=== PATIENT | female | born 1955 | race Two or more races ===

== ENCOUNTER 2017-12-02 17:05 | Inpatient (IN) | payer OTHER ==
[~2017-12-02] VITALS: Ht 147.3 cm; Wt 85.8 kg
--- NOTE | 2017-12-02 19:10 | NUR ---
IN FROM ER VIA [facility], ADMITTED TO ARU 62 YEAR OLD F WITH DX OF STATUS POST LEFT KNEE REPLACEMENT. AAOX3, DENIES ANY SOB OR CHEST PAIN. ON O2 1L VIA NC, TOLERATED WELL. FAMILY AT BEDSIDE. BELONGING LIST CHECKED. ROUTINE ADMISSION DONE. PLAN OF CARE INITIATED. INSTRUCTIONS GIVEN TO PT NOT TO AMBULATE UNTIL PHYSICAL THERAPIST'S VISIT. PT VERBALIZED UNDERSTANDING. BED ON LOW POSITION AND LOCKED. WITH 2 SIDE RAILS UP, CALL LIGHT WITHIN REACH. Addendum: 12/02/17 at 2231 by GEORGE OCHOA RN TIME OF ARRIVAL TO UNIT: 0H 12/02/17
[2017-12-02 20:00] VITALS: BP 161/86
[2017-12-02] MEDS ORDERED: MAGNESIUM HYDROXIDE 30 ML LIQUID UDC PO PRN (21:00)
[2017-12-02] MEDS ORDERED: Z GUARD REMEDY PASTE 57 GM TUBE TOP PRN (21:00)
[2017-12-02] MEDS ORDERED: ONDANSETRON 4 MG/2 ML VIAL IV PRN (21:00)
[2017-12-02] MEDS ORDERED: ZOLPIDEM 5 MG TABLET PO PRN (21:00)
[2017-12-02] MEDS: DOCUSATE SODIUM 100 MG CAPSULE PO SCH (23:00)
[2017-12-03] MEDS: PANTOPRAZOLE SODIUM 40 MG TABLET.DR PO SCH (06:22)
[2017-12-03] MEDS: ACETAMINOPHEN 325 MG TABLET PO PRN (06:28)
--- NOTE | 2017-12-03 06:28 | NUR ---
PT SLEEPING COMFORTABLY ON BED. NO COMPLAINTS OF DISTRESS THROUGHOUT THE SHIFT. ENCOURAGED TO CONTINUE USING INCENTIVE SPIROMETRY AND REMINDED NOT TO AMBULATE UNTIL PHYSICAL THERAPY EVALUATION. PT VERBALIZED UNDERSTANDING. DAUGHTER AT BEDSIDE. ALL NEEDS ATTENDED AND MET. SAFE ENVIRONMENT MAINTAINED AT ALL TIMES, CALL HEAD WITHIN REACH.
--- NOTE | 2017-12-03 07:30 | NUR ---
Rec'd pt in bed awake, no acute distress noted. Dtr at bedside. Pt admitted during noc shift. Pt A&Ox4, Kyrgyz speaking with some Icelandic. Pt S/P L knee arthroplasty at [facility]. Pt on 1L O2 via n/c, no SOB noted. All safety precautions in place at this time. Will continue to monitor.
[2017-12-03 08:01] LABS: BASOPHILS % (AUTO) 0.5 % (0.0-2.0); EOSINOPHILS # (AUTO) 0.1 K/uL (0.0-0.7); EOSINOPHILS % (AUTO) 0.9 % (0.0-7.0); HEMATOCRIT 28.1 % (31.2-41.9); HEMOGLOBIN 9.8 g/dL (10.9-14.3); LYMPHOCYTES # (AUTO) 1.8 K/uL (20.0-40.0); LYMPHOCYTES % (AUTO) 19.1 % (20.5-51.5); MEAN CORPUSCULAR HEMOGLOBIN 31.1 uug (24.7-32.8); MEAN CORPUSCULAR HGB CONC 35 g/dL (32.3-35.6); MEAN CORPUSCULAR VOLUME 89.6 fL (75.5-95.3); MONOCYTES # (AUTO) 0.9 K/uL (2.0-10.0); MONOCYTES % (AUTO) 9.6 % (0.0-11.0); NEUTROPHILS # (AUTO) 6.5 K/uL (1.8-8.9); NEUTROPHILS % (AUTO) 69.9 % (38.5-71.5); PLATELET COUNT (AUTO) 162 K/uL (179-408); RED BLOOD CELL COUNT(AUTO) 3.14 MIL/uL (3.63-4.92); WHITE BLOOD COUNT (AUTO) 9.4 K/uL (3.8-11.8)
[2017-12-03 08:11] LABS: CREATININE 0.9 mg/dL (0.6-1.3); PHOSPHOROUS 1.9 mg/dL (2.5-4.9); POTASSIUM 3.9 mmol/L (3.5-5.1)
[2017-12-03] MEDS: HYDROCODONE/APAP 5-325MG TABLET PO PRN ×3 (09:04→22:20)
[2017-12-03] MEDS: ONDANSETRON HCL 4 MG TABLET PO PRN ×2 (10:28→17:54)
[2017-12-03 16:15] VITALS: BP 149/74
[2017-12-03] MEDS ORDERED: NEUTRA PHOS PACKET PO ONE (16:30)
--- NOTE | 2017-12-03 16:48 | NUR ---
Pt complained of coughing up blood. Per pt, she was performing the incentive spirometer exercised and it made her cough up sputum with bright red blood. Noted scant sputum with bright red blood to pt's towel at bedside. Pt without s/s of acute resp distress noted. Vs: 99.1 oral, 101 18 149/72 0/10. Lung sounds clear. Denies dyspnea. Per pt she has had bloody sputum before after being extubated with recent surgery but this is most blood so far. Paged Jeff Zaldivar NP c/o Rodrigo from the answering service. Awaiting call back. Will continue to monitor pt.
--- NOTE | 2017-12-03 17:30 | NUR ---
GILDA Aguilar in-house. Relayed pt's condition and episode of coughing up blood with sputum during use of incentive spirometer. Per Jeff, continue to monitor pt for further episodes. Per GILDA Aguilar pt could have sustained abrasions in her airway while being intubated that have scabbed over. The scabs could have been dislodged during a forceful cough which could have caused the bloody sputum. No new orders at this time. Notified pt and her daughter/family at bedside. No further episode at this time. Will continue to monitor pt.
[2017-12-03] MEDS ORDERED: SENN-18 PO (19:05)
[2017-12-03] MEDS ORDERED: DIPH25CA83 PO (19:05)
[2017-12-03] MEDS ORDERED: MAG-55 PO (19:05)
[2017-12-03] MEDS ORDERED: SIMV40TA5 PO (19:05)
[2017-12-03] MEDS ORDERED: FAMO-132 PO (19:05)
[2017-12-03] MEDS ORDERED: AMLO5TAB7 PO (19:05)
[2017-12-03] MEDS ORDERED: ZOLP5TAB2 PO (19:05)
[2017-12-03] MEDS ORDERED: ATEN50TA PO (19:05)
[2017-12-03] MEDS ORDERED: RIVA20TA PO (19:05)
[2017-12-03] MEDS ORDERED: BENZ1LOZ58 MM (19:05)
[2017-12-03] MEDS ORDERED: OXYC-133 PO (19:05)
[2017-12-03] MEDS ORDERED: SENNOSIDES 1 TABLET PO PRN (20:45)
[2017-12-03] MEDS ORDERED: Medication Not On Formulary EA (Diphenhydramine Hcl (Benadryl) 25 MG) PO SCH (20:45)
[2017-12-03 21:00] VITALS: BP 123/70
[2017-12-03] MEDS: SIMVASTATIN 40 MG TABLET PO SCH ×2 (21:41→22:20)
[2017-12-03] MEDS ORDERED: diphenhydrAMINE 25 MG CAP PO PRN (22:00)
[2017-12-03] MEDS: DOCUSATE SODIUM 100 MG CAPSULE PO SCH (22:20)
[2017-12-04] MEDS: HYDROCODONE/APAP 5-325MG TABLET PO PRN ×3 (05:15→16:36)
[2017-12-04 05:45] VITALS: BP 141/72
[2017-12-04] MEDS: PANTOPRAZOLE SODIUM 40 MG TABLET.DR PO SCH (06:42)
[2017-12-04 08:00] VITALS: BP 151/75
[2017-12-04] MEDS ORDERED: Medication Not On Formulary EA (Rivaroxaban (Xarelto) 10 MG) PO SCH (09:00)
[2017-12-04] MEDS: ATENOLOL 50 MG TABLET PO SCH (09:07)
[2017-12-04] MEDS: AMLODIPINE 5 MG TABLET PO SCH (09:07)
--- NOTE | 2017-12-04 10:54 | NUR ---
No coughing this am. Patient in therapy at this time.
[2017-12-04] MEDS: OXYCODONE/APAP 5-325 MG TABLET PO PRN ×2 (11:31→20:30)
--- NOTE | 2017-12-04 11:54 | NUR ---
Patient using constant passive range of motion in bed at this time.
[2017-12-04 16:00] VITALS: BP 114/49
[2017-12-04] MEDS: RIVAROXABAN 10 MG TABLET PO SCH (18:16)
--- NOTE | 2017-12-04 19:23 | NUR ---
Handoff to night nurse PAULA Wakefield. Maico Yanez RN
[2017-12-04 20:00] VITALS: BP 119/58
[2017-12-04] MEDS: DOCUSATE SODIUM 100 MG CAPSULE PO SCH (20:30)
[2017-12-04] MEDS: SIMVASTATIN 40 MG TABLET PO SCH (20:30)
--- NOTE | 2017-12-04 21:49 | NUR ---
Received pt in bed. Family at bedside. No acute distress noted. C/o pain on the left knee, pt requested for pain med. Percocet and other scheduled meds given as ordered. Safety measures maintained. Encouraged pt to use call light. Call light and personal belongings within reach. Will continue to monitor.
[2017-12-05] MEDS: HYDROCODONE/APAP 5-325MG TABLET PO PRN ×3 (05:20→21:17)
[2017-12-05] MEDS: PANTOPRAZOLE SODIUM 40 MG TABLET.DR PO SCH (06:03)
[2017-12-05 06:14] VITALS: BP 139/66
--- NOTE | 2017-12-05 07:30 | NUR ---
Received pt in bed with eyes open. No acute distress noted. Safety measures maintained. Pt. mostly speaks Bengali with little Uzbek. Encouraged pt to use call light. Noted LT. knee covered with vlad wrap. Call light and all frequently used items within reach. Will continue to monitor.
[2017-12-05] MEDS: AMLODIPINE 5 MG TABLET PO SCH (10:12)
[2017-12-05] MEDS: ATENOLOL 50 MG TABLET PO SCH (10:12)
[2017-12-05] MEDS: OXYCODONE/APAP 5-325 MG TABLET PO PRN ×2 (10:13→16:27)
[2017-12-05] MEDS ORDERED: BENZOCAINE/MENTH/CETYLPYRD LOZENGE MM PRN (12:30)
--- NOTE | 2017-12-05 15:07 | NUR ---
INTERDISCIPLINARY TEAM CONFERENCE
[2017-12-05] MEDS: RIVAROXABAN 10 MG TABLET PO SCH (17:27)
--- NOTE | 2017-12-05 18:53 | NUR ---
No significant change throughout shift. PRN pain medication given as ordered and tolerated well. Will endorse to oncoming shift accordingly.
[2017-12-05 19:30] VITALS: BP 122/64
--- NOTE | 2017-12-05 19:30 | NUR ---
Awake during initial rounds. No complaint presented at this time. Very pleasant and appreciative. Safety measure and fall precaution maintained. Continue current plan of care.
[2017-12-05] MEDS: DOCUSATE SODIUM 100 MG CAPSULE PO SCH (21:16)
[2017-12-05] MEDS: SIMVASTATIN 40 MG TABLET PO SCH (21:17)
[2017-12-06] MEDS: OXYCODONE/APAP 5-325 MG TABLET PO PRN ×4 (01:59→18:55)
[2017-12-06] MEDS: PANTOPRAZOLE SODIUM 40 MG TABLET.DR PO SCH (06:34)
--- NOTE | 2017-12-06 07:15 | NUR ---
Shift End Report; Slept in between care. Medicated twice for left knee pain with relief. No further complaint presented. Left knee incision dressing dry and intact. No fall/injury reported. All needs attended and met. Continue rehab plan of care.
[2017-12-06] MEDS: ATENOLOL 50 MG TABLET PO SCH (08:22)
[2017-12-06] MEDS: AMLODIPINE 5 MG TABLET PO SCH (08:22)
[2017-12-06 15:42] VITALS: BP 144/67
[2017-12-06] MEDS: RIVAROXABAN 10 MG TABLET PO SCH (18:48)
[2017-12-06 20:05] VITALS: BP 115/60
--- NOTE | 2017-12-06 20:30 | NUR ---
Seen and evaluated by Dr. Sullivan. Pleasant and cooperative. In no apparent acute distress.
[2017-12-06] MEDS: DOCUSATE SODIUM 100 MG CAPSULE PO SCH (21:59)
[2017-12-06] MEDS: HYDROCODONE/APAP 5-325MG TABLET PO PRN (21:59)
[2017-12-06] MEDS: SIMVASTATIN 40 MG TABLET PO SCH (22:00)
--- NOTE | 2017-12-06 23:20 | NUR ---
Received report from outgoing nurse. Pt sleeping at this time. Continue care as planned.
[2017-12-07 04:46] VITALS: BP 134/61
[2017-12-07] MEDS: HYDROCODONE/APAP 5-325MG TABLET PO PRN ×3 (05:05→21:03)
[2017-12-07] MEDS: PANTOPRAZOLE SODIUM 40 MG TABLET.DR PO SCH (05:58)
--- NOTE | 2017-12-07 07:07 | NUR ---
Shift End Report: Slept well. Medicated once for pain with relief. No fall/injury reported. All needs attended and met. Continue care as planned,.
[2017-12-07 08:00] VITALS: BP 136/68
[2017-12-07] MEDS: ATENOLOL 50 MG TABLET PO SCH (08:57)
[2017-12-07] MEDS: AMLODIPINE 5 MG TABLET PO SCH (08:58)
[2017-12-07] MEDS: OXYCODONE/APAP 5-325 MG TABLET PO PRN ×2 (08:59→16:33)
--- NOTE | 2017-12-07 09:57 | NUR ---
Report received from previous shift. Received pt. in bed comfortable with c/o 6/10 pain to LT. knee 2/2 s/p lt. knee replacement, will medicate as ordered. [place] PRN given by previous shift. Pt. A/OX3 speaks mostly Cape Verdean with little Cambodian. No new skin condition noted. No c/o of SOB or increase work of breathing, on RA @ 97% sat. No abdominal distention noted. Bed in locked and lowest position. Call light and frequently used items within reach. Emphasize with pt. used of call light, pt. verbalized clear understanding. Will continue to monitor.
[2017-12-07 16:38] VITALS: BP 131/47
[2017-12-07] MEDS: RIVAROXABAN 10 MG TABLET PO SCH (17:23)
--- NOTE | 2017-12-07 19:20 | NUR ---
Awake during initial rounds. Denies pain/discomforts at this time. Left knee dressing dry and intact. Continue care as planned.
[2017-12-07 20:30] VITALS: BP 111/64
[2017-12-07] MEDS: DOCUSATE SODIUM 100 MG CAPSULE PO SCH (21:04)
[2017-12-07] MEDS: SIMVASTATIN 40 MG TABLET PO SCH (21:04)
[2017-12-07] MEDS: ONDANSETRON HCL 4 MG TABLET PO PRN (21:08)
[2017-12-08] MEDS: PANTOPRAZOLE SODIUM 40 MG TABLET.DR PO SCH (05:46)
--- NOTE | 2017-12-08 06:37 | NUR ---
Shift End Report: Slept good. No complaint presented all night. Vs stable. No fall/injury. All needs attended and met.Continue care as planned.
[2017-12-08 07:05] LABS: BASOPHILS # (AUTO) 0.1 K/uL (0.0-8.0); BASOPHILS % (AUTO) 0.8 % (0.0-2.0); EOSINOPHILS # (AUTO) 0.3 K/uL (0.0-0.7); EOSINOPHILS % (AUTO) 3.6 % (0.0-7.0); HEMATOCRIT 26.4 % (31.2-41.9); HEMOGLOBIN 9.1 g/dL (10.9-14.3); LYMPHOCYTES % (AUTO) 26.3 % (20.5-51.5); MEAN CORPUSCULAR HEMOGLOBIN 31.4 uug (24.7-32.8); MEAN CORPUSCULAR HGB CONC 35 g/dL (32.3-35.6); MEAN CORPUSCULAR VOLUME 90.5 fL (75.5-95.3); MONOCYTES # (AUTO) 0.7 K/uL (2.0-10.0); MONOCYTES % (AUTO) 9.1 % (0.0-11.0); NEUTROPHILS # (AUTO) 4.6 K/uL (1.8-8.9); NEUTROPHILS % (AUTO) 60.2 % (38.5-71.5); PLATELET COUNT (AUTO) 306 K/uL (179-408); RED BLOOD CELL COUNT(AUTO) 2.92 MIL/uL (3.63-4.92); WHITE BLOOD COUNT (AUTO) 7.6 K/uL (3.8-11.8)
[2017-12-08 07:11] VITALS: BP 122/73
[2017-12-08 07:27] LABS: THYROID STIMULATING HORMONE 0.983 mIU/mL (0.358-3.740)
[2017-12-08 07:44] LABS: BILIRUBIN,TOTAL 0.9 mg/dL (0.2-1.0); CREATININE 0.7 mg/dL (0.6-1.3); MAGNESIUM 2.2 mg/dL (1.8-2.4); PHOSPHOROUS 3.9 mg/dL (2.5-4.9); TOTAL PROTEIN, SERUM 6.8 g/dL (6.4-8.2)
[2017-12-08 08:00] VITALS: BP 112/84
[2017-12-08] MEDS: ATENOLOL 50 MG TABLET PO SCH (08:44)
[2017-12-08] MEDS: AMLODIPINE 5 MG TABLET PO SCH (08:44)
[2017-12-08] MEDS: HYDROCODONE/APAP 5-325MG TABLET PO PRN ×3 (08:45→18:33)
--- NOTE | 2017-12-08 09:00 | NUR ---
Received patient, awake, alert x4. Not in any form of distress. With pain over left knee rated as 6/10. PRN pain medications given. For physial therapy, patient ready and up in chair.
[2017-12-08 16:07] VITALS: BP 118/63
[2017-12-08] MEDS: RIVAROXABAN 10 MG TABLET PO SCH (18:03)
[2017-12-08] MEDS: ONDANSETRON HCL 4 MG TABLET PO PRN (18:33)
[2017-12-08] MEDS: DOCUSATE SODIUM 100 MG CAPSULE PO SCH (21:17)
[2017-12-08] MEDS: SIMVASTATIN 40 MG TABLET PO SCH (21:18)
[2017-12-08] MEDS: OXYCODONE/APAP 5-325 MG TABLET PO PRN (21:18)
[2017-12-08 21:56] VITALS: BP 120/67
--- NOTE | 2017-12-08 22:08 | NUR ---
Received pt resting in bed and watching TV. AAO x4. Kiswahili speaking, able to make needs known. No acute distress noted. C/o pain on the right knee 09/11, pt requested for pain med. No s/s of infection on surgical site, dressing intact. Gave PRN Percocet. Safety measures maintained. Call light and personal belongings within reach. Will continue to monitor.
[2017-12-09] MEDS: PANTOPRAZOLE SODIUM 40 MG TABLET.DR PO SCH (06:02)
[2017-12-09 06:45] VITALS: BP 144/77
[2017-12-09] MEDS: HYDROCODONE/APAP 5-325MG TABLET PO PRN ×2 (08:19→13:29)
[2017-12-09] MEDS: ATENOLOL 50 MG TABLET PO SCH (08:21)
[2017-12-09] MEDS: AMLODIPINE 5 MG TABLET PO SCH (08:22)
--- NOTE | 2017-12-09 15:14 | NUR ---
INTERDISCIPLINARY TEAM CONFERENCE
[2017-12-09] MEDS: OXYCODONE/APAP 5-325 MG TABLET PO PRN (17:48)
[2017-12-09] MEDS: RIVAROXABAN 10 MG TABLET PO SCH (17:50)
--- NOTE | 2017-12-09 19:21 | NUR ---
SBAR report received this morning. Pt assessed no acute distress throughout this shift and reports pain managed with PRN medication. Pt room changed to 101. Pt compliant with all routine medication administration and actively participates with therapies as offered. Pt assisted to restroom for BMx1. Bed in locked and lowest position, with side rails up x2. All comfort and safety needs met. Call light placed within reach. Will continue to monitor and endorse to on coming night shift supervisor.
[2017-12-09] MEDS: DOCUSATE SODIUM 100 MG CAPSULE PO SCH (20:11)
[2017-12-09] MEDS: SIMVASTATIN 40 MG TABLET PO SCH (20:11)
[2017-12-09 20:35] VITALS: BP 122/64
--- NOTE | 2017-12-09 20:47 | NUR ---
Received pt sleeping comfortably in bed, aroused easily when called by name. AAO x4. South Korean speaking, able to make needs known. No acute distress noted. No c/o pain or discomfort at this time. VSS. Meds given as ordered, pt compliant with plan of care. Safety measures maintained. Call light and personal belongings within reach. Will continue to monitor.
[2017-12-10] MEDS: PANTOPRAZOLE SODIUM 40 MG TABLET.DR PO SCH (06:13)
[2017-12-10 07:01] VITALS: BP 144/78
--- NOTE | 2017-12-10 07:02 | NUR ---
Patient noted resting in bed watching tv, complaints of pain 6/10 in left knee, will administer PRN pain medications, no signs of distress noted, call light in reach, bed locked and in lowest position, x 2 bed rails, all needs met at this time
[2017-12-10] MEDS: OXYCODONE/APAP 5-325 MG TABLET PO PRN ×2 (08:38→15:52)
[2017-12-10] MEDS: ATENOLOL 50 MG TABLET PO SCH (08:39)
[2017-12-10] MEDS: AMLODIPINE 5 MG TABLET PO SCH (08:39)
--- NOTE | 2017-12-10 16:40 | NUR ---
Patient showered this shift, PRN percocet given twice this shift
[2017-12-10] MEDS: RIVAROXABAN 10 MG TABLET PO SCH (17:24)
--- NOTE | 2017-12-10 19:51 | NUR ---
Pt awake and sitting Semi Fowlers position in bed . Pt is c/o pain in left knee , pain a 6 / 10 , and described as sharp . Pt is A & O x 4 , VSS . Pt given pain medication for relief . No other signs of distress . Bed in low position , call light near pt at bedside , wheels locked , and bed alarm on .
[2017-12-10] MEDS: SIMVASTATIN 40 MG TABLET PO SCH (20:03)
[2017-12-10] MEDS: DOCUSATE SODIUM 100 MG CAPSULE PO SCH (20:04)
[2017-12-10] MEDS: HYDROCODONE/APAP 5-325MG TABLET PO PRN (20:04)
[2017-12-10 20:14] VITALS: BP 114/47
[2017-12-11] MEDS: PANTOPRAZOLE SODIUM 40 MG TABLET.DR PO SCH (06:13)
[2017-12-11 06:52] VITALS: BP 149/76
--- NOTE | 2017-12-11 07:10 | NUR ---
Pt slept throughout the shift . Pt has no distress , c/o pain in left knee , pain is a 5 / 10 . Pt did not want pain medication yet , wanted an ice pack , given ice pack . A & O x4 , VSS .
--- NOTE | 2017-12-11 07:54 | NUR ---
Patient noted resting in bed with eyes closed, no facial cues of pain noted, no signs of distress noted, call light noted in reach, bed locked and in lowest position, all needs met at this time
[2017-12-11] MEDS: OXYCODONE/APAP 5-325 MG TABLET PO PRN ×2 (08:28→16:03)
[2017-12-11] MEDS: ATENOLOL 50 MG TABLET PO SCH (08:29)
[2017-12-11] MEDS: AMLODIPINE 5 MG TABLET PO SCH (08:30)
[2017-12-11 09:00] VITALS: BP 147/75
[2017-12-11] MEDS: RIVAROXABAN 10 MG TABLET PO SCH (17:18)
--- NOTE | 2017-12-11 19:00 | NUR ---
Awake during initial rounds. CPM removed per patient request. Denies any pain/discomforts. Assisted to the BR. Safety measures and fall precaution maintained. Continue care as planned.
[2017-12-11 20:00] VITALS: BP 132/71
[2017-12-11] MEDS: SIMVASTATIN 40 MG TABLET PO SCH (21:23)
[2017-12-11] MEDS: DOCUSATE SODIUM 100 MG CAPSULE PO SCH (21:23)
[2017-12-12 05:45] VITALS: BP 141/69
[2017-12-12] MEDS: PANTOPRAZOLE SODIUM 40 MG TABLET.DR PO SCH (06:08)
--- NOTE | 2017-12-12 06:29 | NUR ---
Shift End Report: VS stable. Slept well. No complaint presented all night. No fall/injury. All needs attended and met. No significant event reported all throughout the night. Continue current rehab plan of care
--- NOTE | 2017-12-12 07:10 | NUR ---
Nurse Notes: received patient awake, alert and oriented lying on bed on a semi loja's position. No SOB or distress. Safety precautions observed. Informed patient regarding hourly rounding, discussed to patient on how to use telephone and call light. Will continue to monitor.
[2017-12-12 08:00] VITALS: BP 128/72
[2017-12-12] MEDS: HYDROCODONE/APAP 5-325MG TABLET PO PRN ×3 (08:24→21:16)
[2017-12-12] MEDS: AMLODIPINE 5 MG TABLET PO SCH (08:24)
[2017-12-12] MEDS: ATENOLOL 50 MG TABLET PO SCH (08:24)
[2017-12-12] MEDS: RIVAROXABAN 10 MG TABLET PO SCH (17:23)
--- NOTE | 2017-12-12 17:46 | NUR ---
Nurse Notes: Patient alert and oriented x 4, able to make needs known remained stable throughout the shift. No SOB or distress noted. Assessed and reassessed for pain, medicated with [place] PRN for pain as ordered. Wound care treatment done as ordered- tolerated well. Safety precautions observed, hourly rounding done. Telephone and call light within reach at all times. All needs were attended and anticipated. Kept patient clean, dry and comfortable. Will continue to monitor. Will endorse accordingly to next shift for continuity of care.
[2017-12-12 17:49] VITALS: BP 118/67
[2017-12-12 19:46] VITALS: BP 129/71
--- NOTE | 2017-12-12 20:00 | NUR ---
Pt is awake and laying Semi Fowlers position in bed . Pt is c/o pain in left knee , 5 / 10 . Pt given pain medication . Pt has no other signs of distress .Pt is A & O x 4 , VSS .
[2017-12-12] MEDS: SIMVASTATIN 40 MG TABLET PO SCH (20:35)
[2017-12-12] MEDS: DOCUSATE SODIUM 100 MG CAPSULE PO SCH (20:35)
--- NOTE | 2017-12-13 06:20 | NUR ---
Pt slept well throughout the shift . Pt had no signs of distress and no c/ o pain . Pt is A & O x 4 , VSS . All safety precautions observed in room and by patient . Bed in low position , wheels locked , side rails x 3 up , and call light near pt at bedside .
[2017-12-13] MEDS: PANTOPRAZOLE SODIUM 40 MG TABLET.DR PO SCH (06:33)
[2017-12-13 06:55] VITALS: BP 145/84
[2017-12-13] MEDS: AMLODIPINE 5 MG TABLET PO SCH (08:24)
[2017-12-13] MEDS: ATENOLOL 50 MG TABLET PO SCH (08:24)
[2017-12-13] MEDS: HYDROCODONE/APAP 5-325MG TABLET PO PRN ×3 (08:25→20:38)
--- NOTE | 2017-12-13 09:38 | NUR ---
Received patient lying in bed. Continue on therapy with assist for ambulation and activities of daily living. Continue on pain management. Complaint of pain/discomfort on left hip. Redfox 5-325mg 1 tab given with good effect. will continue monitor
[2017-12-13] MEDS: ONDANSETRON HCL 4 MG TABLET PO PRN (15:04)
[2017-12-13] MEDS: ACETAMINOPHEN 325 MG TABLET PO PRN (15:56)
[2017-12-13] MEDS: RIVAROXABAN 10 MG TABLET PO SCH (17:02)
[2017-12-13 18:58] VITALS: BP 126/62
--- NOTE | 2017-12-13 19:00 | NUR ---
Awake during initial rounds, sitting on the bed. . Daughter at bedside. Left knee dressing dry and intact. Denies any pain/discomforts at this time. Continue care as planned.
[2017-12-13 20:33] VITALS: BP 121/67
[2017-12-13] MEDS: SIMVASTATIN 40 MG TABLET PO SCH (20:38)
[2017-12-13] MEDS: DOCUSATE SODIUM 100 MG CAPSULE PO SCH (20:38)
[2017-12-14] MEDS: PANTOPRAZOLE SODIUM 40 MG TABLET.DR PO SCH (05:53)
[2017-12-14] MEDS: HYDROCODONE/APAP 5-325MG TABLET PO PRN ×3 (05:54→23:11)
[2017-12-14 05:59] VITALS: BP 151/73
--- NOTE | 2017-12-14 06:35 | NUR ---
Shift End Report: Vs stable. Slept good. Ambulated to the bathroom by herself with walker. No fall/injury. Medicated twice with complaint of left knee pain incision site, dressing dry and intact. No further complaint presented. All needs attended and met. Continue current rehab plan of care.
[2017-12-14] MEDS: ATENOLOL 50 MG TABLET PO SCH (08:29)
[2017-12-14] MEDS: ACETAMINOPHEN 325 MG TABLET PO PRN (08:30)
[2017-12-14] MEDS: AMLODIPINE 5 MG TABLET PO SCH (08:30)
[2017-12-14] MEDS: OXYCODONE/APAP 5-325 MG TABLET PO PRN ×2 (08:53→20:07)
--- NOTE | 2017-12-14 09:53 | NUR ---
Patient continue on pain management prior therapy. Percocet given at 853am with good effect. not in distress. Continue medication for HTN controlled. Continue bathroom priviledge with assist. Continue CMP for 2 hours for wound healing, circulation and ambulation. will continue monitor
[2017-12-14] MEDS: RIVAROXABAN 10 MG TABLET PO SCH (17:16)
--- NOTE | 2017-12-14 19:45 | NUR ---
Received pt in bed, AAO x 4 with daughter at bedside. No acute distress noted. Verbally responsive and able to make needs known. C/O pain left knee 6/10 pain scale. Repositioned in bed for comfort. All safety measures and fall precautions maintained. Call light and all personal belongings within reach. Will continue to monitor.
[2017-12-14 19:53] VITALS: BP 137/61
[2017-12-14] MEDS: SIMVASTATIN 40 MG TABLET PO SCH (20:07)
[2017-12-14] MEDS: DOCUSATE SODIUM 100 MG CAPSULE PO SCH (20:07)
--- NOTE | 2017-12-14 20:15 | NUR ---
PRN Percocet given as ordered. Tolerated well. Safety maintained. Will continue to monitor.
[2017-12-15 05:03] VITALS: BP 137/74
[2017-12-15] MEDS: PANTOPRAZOLE SODIUM 40 MG TABLET.DR PO SCH (06:24)
[2017-12-15] MEDS: AMLODIPINE 5 MG TABLET PO SCH (08:22)
[2017-12-15] MEDS: ATENOLOL 50 MG TABLET PO SCH (08:23)
[2017-12-15] MEDS: OXYCODONE/APAP 5-325 MG TABLET PO PRN ×2 (08:24→18:32)
[2017-12-15 08:25] VITALS: BP 151/86
[2017-12-15] MEDS: HYDROCODONE/APAP 5-325MG TABLET PO PRN ×2 (13:07→20:17)
[2017-12-15] MEDS: RIVAROXABAN 10 MG TABLET PO SCH (18:13)
--- NOTE | 2017-12-15 19:25 | NUR ---
Received pt up in bed, AAO x 4. No acute distress noted. Verbally responsive and able to make needs known. Denies pain or discomfort at this time, stating she just received pain medication from AM nurse. All safety measures and fall precautions maintained. Call light and all personal belongings within reach. Will continue to monitor.
[2017-12-15 19:49] VITALS: BP 133/64
[2017-12-15] MEDS: DOCUSATE SODIUM 100 MG CAPSULE PO SCH (20:17)
[2017-12-15] MEDS: SIMVASTATIN 40 MG TABLET PO SCH (20:17)
[2017-12-16 05:19] VITALS: BP 137/67
[2017-12-16] MEDS: PANTOPRAZOLE SODIUM 40 MG TABLET.DR PO SCH (06:19)
[2017-12-16 08:00] VITALS: BP 137/76
[2017-12-16 08:15] VITALS: BP 137/76
[2017-12-16] MEDS: ATENOLOL 50 MG TABLET PO SCH (08:15)
[2017-12-16] MEDS: AMLODIPINE 5 MG TABLET PO SCH (08:15)
[2017-12-16] MEDS: HYDROCODONE/APAP 5-325MG TABLET PO PRN (08:16)
--- NOTE | 2017-12-16 09:30 | NUR ---
Received pt in bed with eyes open. No acute distress noted. Encouraged pt to use call light. Noted LT. knee covered with surgical dressing, C/D/I. Pt. c/o 6/10 P.S on LT. knee, prn [place] given and tolerated well, repositioned pt. for comfort. Offered PO fluid as tolerated. Call light and all frequently used items within reach. Safety measures maintained. Pt. to discharge home today @ 1300 with f/u appt with Dr. Rene @ 1345 today, awaiting discharge order from Dr. Toney. Pt. to d/c home with home health to provide Pt/OT/RN services. Pt. aware of discharge with no concerns at this time. Will continue to monitor.
--- NOTE | 2017-12-16 10:30 | NUR ---
Obtained discharge orders from Dr. Toney. Orders noted and carried out. Pt. made aware and amenable.
[2017-12-16] MEDS: ONDANSETRON HCL 4 MG TABLET PO PRN (12:22)
[2017-12-16] MEDS: OXYCODONE/APAP 5-325 MG TABLET PO PRN (12:23)
--- NOTE | 2017-12-16 13:40 | NUR ---
Discharge note: No significant change during this shift. Pt. participated with PT/OT treatment today and tolerated well. C/O 8/10 P.S on Lt. knee after therapy and nausea no emesis. PRN zofran and percocet given as ordered. Repositioned pt. for comfort. Pt. showered today, LT. knee surgical site kept clean and dry; dressing changed covered with new surgical dressing. Daughter by arrived in unit. Pt. teaching provided to patient and DTR, all concerns and questions answered. Pt. and DTR verbalized clear understanding at this time. All medications provided by pt. returned back to r/p and pt. All belongings accountable for, no missing items. No DME provided, per pt. and DTR, w/c and walker are available to pt at home. Re-assessed pt. pain 1/10 P.S and no c/o nausea. All discharge documents signed and acknowledge by pt. X-ray CD copy provided to pt. Discharge packet given to pt. 1330 Pt. wheeled out of unit safely in stable condition and d/c home with home health to provide PT/OT/RN services.
== END 2017-12-16 13:30 | disposition home health service (06) | DRG 560 ==
PROVIDERS: ADMIT Physical Medicine & Rehabilitation Pain Medicine; ATTEND Physical Medicine & Rehabilitation Pain Medicine
DX: Z47.1 Aftercare following joint replacement surgery (principal); R04.2 Hemoptysis; E66.01 Morbid (severe) obesity due to excess calories; Z68.39 Body mass index [BMI] 39.0-39.9, adult; Z90.49 Acquired absence of other specified parts of digestive tract; Z90.710 Acquired absence of both cervix and uterus; E78.5 Hyperlipidemia, unspecified; I10 Essential (primary) hypertension; L29.9 Pruritus, unspecified; Z96.652 Presence of left artificial knee joint; D64.9 Anemia, unspecified; E83.39 Other disorders of phosphorus metabolism; G89.29 Other chronic pain; M19.90 Unspecified osteoarthritis, unspecified site; Z91.81 History of falling; S30.810A Abrasion of lower back and pelvis, initial encounter; X58.XXXA Exposure to other specified factors, initial encounter; Y93.9 Activity, unspecified; Y92.009 Unspecified place in unspecified non-institutional (private) residence as the place of occurrence of the external cause; R05 Cough; Z88.6 Allergy status to analgesic agent; Z91.048 Other nonmedicinal substance allergy status; R73.9 Hyperglycemia, unspecified
CPT/HCPCS: 36415; 83735; 84100; 84443; 85025; 92523; 92526; 92610; 97110; 97112; 97116; 97165; 97530; 97535; A4663; Q0162; Q0163